=== PATIENT | male | born 1945 | race Caucasian/White ===

== ENCOUNTER 2020-03-21 09:23 | Observation (INO) ==
--- NOTE | 2020-02-18 12:57 | PAT Medication Instructions ---
Medication Instructions Date of Service February 18, 2020 Home Medications acetaminophen [Tylenol Extra Strength] 500 mg PO BID allopurinol 100 mg PO QAM diphenhydramine HCl [Benadryl] 50 mg PO HS docusate sodium [Colace] 100 mg PO PM Centrum Silver Men] 1 tab PO QAM omeprazole magnesium [Prilosec OTC] 20 mg PO Q OTHER DAY oxymetazoline [Afrin Sinus (oxymetazoline)] 2 spray INTRANASAL Q12H PRN sennosides [Senna Lax] 8.6 mg PO HS tadalafil [Cialis] 5 mg PO DAILY PRN vit C,W-Wf-mrjwe-lutein-zeaxan [PreserVision AREDS-2] 1 tab PO QAM vitamin E 400 unit PO 3XWK Continue as directed omeprazole magnesium [Prilosec OTC] 20 mg PO Q OTHER DAY STOP taking 2 weeks before surgery (or as soon as possible if surgery is within 2 weeks) vit C,A-Rl-kqtdk-lutein-zeaxan [PreserVision AREDS-2] 1 tab PO QAM vitamin E 400 unit PO 3XWK DO NOT take the morning of surgery Centrum Silver Men] 1 tab PO QAM tadalafil [Cialis] 5 mg PO DAILY PRN Take morning of surgery With a small sip of water, OTHERWISE NOTHING TO EAT OR DRINK AFTER MIDNIGHT: acetaminophen [Tylenol Extra Strength] 500 mg PO BID (okay to take up to 4 hours prior to surgery if needed) allopurinol 100 mg PO QAM oxymetazoline [Afrin Sinus (oxymetazoline)] 2 spray INTRANASAL Q12H PRN (if needed) Take evening before surgery acetaminophen [Tylenol Extra Strength] 500 mg PO BID diphenhydramine HCl [Benadryl] 50 mg PO HS docusate sodium [Colace] 100 mg PO PM oxymetazoline [Afrin Sinus (oxymetazoline)] 2 spray INTRANASAL Q12H PRN (if needed) sennosides [Senna Lax] 8.6 mg PO HS tadalafil [Cialis] 5 mg PO DAILY PRN (if needed) Other Notes If you have any questions please call us at [phone] or [phone] or [phone] or [phone]
--- NOTE | 2020-02-18 13:18 | PAT Medication Instructions ---
Medication Instructions Date of Service February 18, 2020 Home Medications acetaminophen [Tylenol Extra Strength] 500 mg PO BID allopurinol 100 mg PO QAM diphenhydramine HCl [Benadryl] 50 mg PO HS docusate sodium [Colace] 100 mg PO PM bqfmurfe-uvg-VN-lycopen-lutein [Centrum Silver Men] 1 tab PO QAM omeprazole magnesium [Prilosec OTC] 20 mg PO Q OTHER DAY oxymetazoline [Afrin Sinus (oxymetazoline)] 2 spray INTRANASAL Q12H PRN sennosides [Senna Lax] 8.6 mg PO HS tadalafil [Cialis] 5 mg PO DAILY PRN vit C,E-Ax-zjejw-lutein-zeaxan [PreserVision AREDS-2] 1 tab PO QAM vitamin E 400 unit PO 3XWK STOP taking 2 weeks before surgery vit C,F-Pa-emwop-lutein-zeaxan [PreserVision AREDS-2] 1 tab PO QAM vitamin E 400 unit PO 3XWK STOP taking 24 hours before surgery tadalafil [Cialis] 5 mg PO DAILY PRN DO NOT take the morning of surgery vsdonbuh-kuw-CF-lycopen-lutein [Centrum Silver Men] 1 tab PO QAM Take morning of surgery With a small sip of water, OTHERWISE NOTHING TO EAT OR DRINK AFTER MIDNIGHT: acetaminophen [Tylenol Extra Strength] 500 mg PO BID (okay to take up to 4 hours prior to surgery if needed) allopurinol 100 mg PO QAM omeprazole magnesium [Prilosec OTC] 20 mg PO Q OTHER DAY oxymetazoline [Afrin Sinus (oxymetazoline)] 2 spray INTRANASAL Q12H PRN (if needed) Take evening before surgery acetaminophen [Tylenol Extra Strength] 500 mg PO BID (if needed) diphenhydramine HCl [Benadryl] 50 mg PO HS docusate sodium [Colace] 100 mg PO PM oxymetazoline [Afrin Sinus (oxymetazoline)] 2 spray INTRANASAL Q12H PRN (if needed) sennosides [Senna Lax] 8.6 mg PO HS Other Notes If you have any questions please call us at [phone] or [phone] or [phone] or [phone]
--- NOTE | 2020-02-21 12:21 | Anesthesiology Consultation ---
Date of Service February 21, 2020 Assessment & Plan (1) Encounter for pre-operative examination: COVID Status: As of 02/20 assessment, patient denies travel to endemic area, known exposure/sick contacts, or symptoms of COVID19. Patient instructed that they and their household members must follow strict social distancing guidelines, wear a mask in public and avoid travel for 14 days prior to surgery. Preoperative COVID19 testing to be completed prior to surgery per surgeon's arra ngements. Patient made aware to self-isolate as much as possible between COVID testing and surgery. Hx of anesthesia reaction -- patient reports in 1998 he had an epidural or spinal for a colon resection. When he woke up in recovery he was "paralyzed and couldn't breathe and ," and was possibly intubated, patient's report and memory is vague, but he states when he woke up again later the paralysis had resolved. ?high spinal, details are unclear. Chart Review Chart Review: Acceptable Risk for Surgery (pending response from PCP re: creatinine) and Patient seen in Pre Admission Testing Teaching & Discussion Instructed NPO after midnight before surgery, except medications with 15 cc of water. Medication instructions provided according to the PAT guidelines. History Surgery Operation Date: 03/22/20 07:00 Proposed Procedures p Left Total Knee Arthroplasty - Carlos Bell DO Height/Weight Height: 5 ft 11 in Weight: 92.533 kg Allergies Allergy/AdvReac Type Severity Reaction Status Date / Time Sulfa (Sulfonamide Allergy Redness of Verified 02/14/20 13:19 Antibiotics) Skin Medications Home Medications Medication Instructions Recorded Confirmed Last Taken acetaminophen [Tylenol Extra 500 mg PO BID 02/14/20 02/14/20 Unknown Strength] allopurinol 100 mg PO QAM 02/14/20 02/14/20 Unknown diphenhydramine HCl [Benadryl] 50 mg PO HS 02/14/20 02/14/20 Unknown docusate sodium [Colace] 100 mg PO PM 02/14/20 02/14/20 Unknown ceokzlvt-kzk-ID-lycopen-lutein 1 tab PO QAM 02/14/20 02/14/20 Unknown [Centrum Silver Men] omeprazole magnesium [Prilosec OTC] 20 mg PO Q OTHER DAY 02/14/20 02/14/20 Unknown oxymetazoline [Afrin Sinus 2 spray INTRANASAL Q12H PRN 02/14/20 02/14/20 Unknown (oxymetazoline)] sennosides [Senna Lax] 8.6 mg PO HS 02/14/20 02/14/20 Unknown tadalafil [Cialis] 5 mg PO DAILY PRN 02/14/20 02/14/20 Unknown vit C,Z-Fl-vjsqf-lutein-zeaxan 1 tab PO QAM 02/14/20 02/14/20 Unknown [PreserVision AREDS-2] vitamin E 400 unit PO 3XWK 02/14/20 02/14/20 Unknown Past Medical History Medical History (Updated 02/22/20 @ 08:41 by Jf Suh) Anemia Chronic obstructive pulmonary disease ? POSSIBLE> BEGINNING STAGES PER PTS , PT DOES NOT USE ANY INHALERS Degenerative disc disease Double vision HAS HAD SURGERY IN PAST FOR THIS AT [facility] > DID NOT WORK GERD (gastroesophageal reflux disease) Gout Hearing deficit Hiatal hernia History of chemotherapy LAST EPISODE IN 1999 History of GI bleed RESOLVED AFTER SMALL BOWEL RESECTION Hx of colon cancer, stage IV 1998 Irregular heart beats PT REPORTS IRREGULAR RHYTHM, WAS CLEARED BY CARDIO IN THE PAST, NO FURTHER DETAILS KNOWN, NSR AT [facility]. Kidney stones HX Ocular migraine Osteoarthritis Prostate cancer 43 RADIATION TREATMENTS> 4 YS AGO Exercise / Class Metabolic Activity II 4-5 Yardwork/Stairs/Walk up hill (DENIES CP OR SOB WITH 1 FOS, SOME BARNEY WITH WALKING UP A HILL) Past Family History Family History Father Prostate cancer Mother Pre-diabetes Past Surgical History Surgical History (Updated 02/22/20 @ 08:42 by Jf Suh) H/O prostate biopsy H/O right hemicolectomy History of anesthesia reaction AT [facility] IN SEPTEMBER 1998 PT HAD TO BE BAGGED BC QUIT BREATHING DURING PROCEDURE. PT UNSURE OF DETAILS. SUBSEQUENT SURGERIES WITHOUT ISSUES. History of bowel resection SMALL BOWEL> 2016 History of colonoscopy History of esophagogastroduodenoscopy (EGD) Kidney carcinoma REMOVED LEFT KIDNEY > 1996 Nausea and vomiting after administration of anesthetic agent Slow to wake up after anesthesia Past Anesthesia History No Family Hx of Anesthesia Complications (NOT KNOWN) and Other Pt provided vague history of possible anesthesia reaction, possible high spinal for 1998 colon resection. Reports he "" and was brought back, recalls feeling paralyzed but it eventually resolved. History of PONV History of PONV and Hx of Motion Sickness Social History Smoking Status: Former smoker Do You Dip or Chew Tobacco: No Smoking End Date: 1992 Hx Alcohol Use: No Hx Substance Use: No substance use type: does not use Review of Systems Pt denies any recent chest pain, shortness of breath, palpitations, cough, fever, URI, or uncontrolled acid reflux. Physical Exam Vital Signs BP: 130/74 P: 73bpm SPO2: 97% RA T: 98.4 F R: 16 ENMT Mouth: + dental restorations (few posts); no chipped teeth and no loose teeth Thyromental Distance: < 3.5 Finger Breadths (3) Mallampati Class: I Neck normal visual inspection and + limited neck extension Respiratory normal respiratory effort Auscultation: lungs clear to auscultation bilaterally and + diminished lung sounds (B/L) Cardiovascular Rate/Rhythm: regular rate and regular rhythm Heart Sounds: no murmur Testing Laboratory Results 02/21/20 12:36 02/21/20 12:36 PT 10.3 Seconds (9.0-12.0) 02/21/20 12:36 INR 1.0 (0.9-1.1) 02/21/20 12:36 APTT 28.2 Seconds (21.0-31.0) 02/21/20 12:36 Hemoglobin A1c 5.8 % (4.5-5.6) H 02/21/20 12:36 Urine Color Yellow 02/21/20 12:36 Urine Appearance Clear (Clear) 02/21/20 12:36 Urine pH 5.5 (4.5-7.5) 02/21/20 12:36 Ur Specific [place] 1.018 (1.000-1.030) 02/21/20 12:36 Urine Protein Negative (Negative) 02/21/20 12:36 Urine Glucose (UA) Negative (Negative) 02/21/20 12:36 Urine Ketones Negative (Negative) 02/21/20 12:36 Urine Nitrite Negative (Negative) 02/21/20 12:36 Ur Leukocyte Esterase Negative (Negative) 02/21/20 12:36 Blood Type A Positive 02/21/20 12:36 Antibody Screen NEGATIVE 02/21/20 12:36 Electrocardiogram Date: 02/21/20 Findings: + NSR @ (67bpm) Left axis deviation. Low voltage QRS. RBBB. Chest X-Ray Date: 02/21/20 Findings: + NAD
--- NOTE | 2020-02-21 13:01 | Electrocardiogram Report ---
Test Reason : Blood Pressure : / mmHG Vent. Rate : 067 BPM Atrial Rate : 067 BPM P-R Int : 162 ms QRS Dur : 114 ms QT Int : 408 ms P-R-T Axes : 058 -82 049 degrees QTc Int : 431 ms Normal sinus rhythm Left axis deviation Low voltage QRS Right bundle branch block Abnormal ECG No previous ECGs available Confirmed by Eduardo Harrison ([id number]) on 02/21/2020 1:00:33 PM Referred By: Carlos Bell Confirmed By:Eduardo Harrison
--- NOTE | 2020-02-21 13:21 | XRay Report ---
TWO VIEW CHEST CLINICAL HISTORY: Preoperative examination. FINDINGS: PA and lateral chest radiographs are obtained. No prior studies are available for compariso n at the time of dictation. The cardiomediastinal silhouette is unremarkable noting atherosclerotic calcification of the thoracic aorta. There is mild bibasilar atelectasis. No airspace consolidation o r pleural effusion is identified. There is no pneumothorax. The skeletal structures are osteopenic. T he bony thorax appears intact. Degenerative change is seen in the thoracic spine. IMPRESSION: No active disease in the chest. ACT 112: Negative or not required by law. Electronically signed by: Cain Sheppard M.D. 02/21/2020 1:20 PM
[2020-02-21 13:39] LABS: Appearance Urine Clear (Clear); Bilirubin Urine Negative (Negative); Blood Urine Negative (Negative); Color Urine Yellow; Glucose Urine UA Negative (Negative); Ketones Urine Negative (Negative); Leukocyte Esterase Urine Negative (Negative); Nitrite Urine Negative (Negative); Protein Urine Negative (Negative); Specific Gravity Urine 1.018 (1.000-1.030); Urobilinogen Urine Negative (Negative); pH Urine 5.5 (4.5-7.5)
[2020-02-21 13:43] LABS: Basophils # (auto) 0.01 K/uL (0-0.2); Basophils % (auto) 0.2 %; Eosinophils # (auto) 0.14 K/uL (0-0.5); Hematocrit (blood only) 37.7 % (42-52); Hemoglobin 12.6 g/dL (14.0-18.0); Immature Granulocytes # (auto) 0.01 K/uL (0.00-0.02); Immature Granulocytes % (auto) 0.2 %; Lymphocytes # (auto) 1.16 K/uL (1.2-3.4); Lymphocytes % (auto) 25.1 %; Mean Corpuscular Hemoglobin 30.6 pg (25-34); Mean Corpuscular Hgb Conc 33.4 g/dL (32-36); Mean Corpuscular Volume 91.5 fL (80-100); Mean Platelet Volume 10.5 fL (7.4-10.4); Monocytes # (auto) 0.38 K/uL (0.11-0.59); Monocytes % (auto) 8.2 %; Neutrophils # (auto) 2.93 K/uL (1.4-6.5); Neutrophils % (auto) 63.3 %; Platelet Count 179 K/uL (130-400); RDW Coefficient of Variation 14.6 % (11.5-14.5); RDW Standard Deviation 49.2 fL (36.4-46.3); Red Blood Count 4.12 M/uL (4.7-6.1); White Blood Count 4.63 K/uL (4.8-10.8)
[2020-02-21 13:50] LABS: Partial Thromboplastin Time 28.2 Seconds (21.0-31.0); Prothrombin Time 10.3 Seconds (9.0-12.0)
[2020-02-21 15:00] LABS: Albumin Level 3.4 gm/dl (3.4-5.0); BUN Creatinine Ratio 11.4 (10-20); Calcium 8.6 mg/dl (8.5-10.1); Est GFR (Non-African American) 36.2; Potassium 4.6 mmol/L (3.5-5.1)
[2020-02-22 05:29] LABS: Estimated Average Glucose 120 mg/dl; Hemoglobin A1C 5.8 % (4.5-5.6)
--- NOTE | 2020-02-25 08:34 | History & Physical Report ---
Date of Service February 25, 2020 date of surgery: 03-22-20 Procedure: left total knee replacement Assessment & Plan (1) Arthritis of knee, left: Risks and benefits of procedure discussed in detail today, patient would like to proceed with a Left total knee replacement at [facility] as scheduled. will obtain medical clearance from Dr Moulton prior to surgery as well as obtain PATs at [facility]. Will place on ASA 81mg po bid x 1 month post op, f/u 2 weeks post op for routine post-operative care and x-ray, sooner if having any problems. will make arrangements for HHPT at the time of discharge. At this point in time, has failed conservative measures and would like to proceed with surgical intervention. The risks and benefits have been discussed including, but not limited to, risk of infection, nerve injury, stiffness, loss of motion, failure to improve, etc. Reasonable outcomes and options of treatment were discussed. An explanation of appropriate alternatives to the procedure that may be advantageous were discussed and their risks and benefits, as well as the risks and benefits of not proceeding with treatment. I offered to answer any additional inquiries concerning the treatment involved. All the patient's questions were answered. The patient is agreeable, understanding of the treatment plan and alternatives, and wishes to proceed with the treatment plan. History of Present Illness Chief Complaint: left knee pain Primary Care Provider: MARGRET MOULTON Mr Meneses is a 74 year old male who complains of left knee pain, presents for pre op eval prior to a left total knee replacement. He presents with pain and stiffness on the left side. He states that the symptoms have been chronic non- traumatic for at least 15 years. Currently the patient states that the symptoms are moderate-severe and is described as aching, sharp, shooting and throbbing. The symptoms are aggravated by ascending stairs, descending stairs, daily activities, exercise, first steps while awake, jumping, kneeling, movement, physical therapy, repetitive activities, sleeping on the affected side, squatting, standing, walking and weight bearing. In addition to left knee pain the patient is also experiencing decreased mobility, crepitus, difficulty bending, difficulty going to sleep, instability, joint pain, limping, nighttime awakening, pain, stiffness, tenderness and weakness. Prior pain medications include Tylenol. He has been treated with a corticosteroid injection, previous visco supplementation, Hyalgan, as well as previous PRP injections x2 to his left knee. Patient has had previous therapy. Allergies Allergy/AdvReac Type Severity Reaction Status Date / Time Sulfa (Sulfonamide Allergy Redness of Verified 02/14/20 13:19 Antibiotics) Skin Home Medications Home Medications Medication Instructions Recorded Confirmed Type acetaminophen [Tylenol Extra 500 mg PO BID 02/14/20 02/14/20 History Strength] allopurinol 100 mg PO QAM 02/14/20 02/14/20 History diphenhydramine HCl [Benadryl] 50 mg PO HS 02/14/20 02/14/20 History docusate sodium [Colace] 100 mg PO PM 02/14/20 02/14/20 History qkffjlpc-gdv-BS-lycopen-lutein 1 tab PO QAM 02/14/20 02/14/20 History [Centrum Silver Men] omeprazole magnesium [Prilosec OTC] 20 mg PO Q OTHER DAY 02/14/20 02/14/20 History oxymetazoline [Afrin Sinus 2 spray INTRANASAL Q12H PRN 02/14/20 02/14/20 History (oxymetazoline)] sennosides [Senna Lax] 8.6 mg PO HS 02/14/20 02/14/20 History tadalafil [Cialis] 5 mg PO DAILY PRN 02/14/20 02/14/20 History vit C,A-Cx-fbjed-lutein-zeaxan 1 tab PO QAM 02/14/20 02/14/20 History [PreserVision AREDS-2] vitamin E 400 unit PO 3XWK 02/14/20 02/14/20 History Past Med/Surg History Medical History Anemia Chronic obstructive pulmonary disease ? POSSIBLE> BEGINNING STAGES PER PTS , PT DOES NOT USE ANY INHALERS Degenerative disc disease Double vision HAS HAD SURGERY IN PAST FOR THIS AT [facility] > DID NOT WORK GERD (gastroesophageal reflux disease) Gout Hearing deficit Hiatal hernia History of chemotherapy LAST EPISODE IN 1999 History of GI bleed RESOLVED AFTER SMALL BOWEL RESECTION Hx of colon cancer, stage IV 1998 Irregular heart beats PT REPORTS IRREGULAR RHYTHM, WAS CLEARED BY CARDIO IN THE PAST, NO FURTHER DETAILS KNOWN, NSR AT PAT. Kidney stones HX Ocular migraine Osteoarthritis Prostate cancer 43 RADIATION TREATMENTS> 4 YS AGO Surgical History H/O prostate biopsy H/O right hemicolectomy History of anesthesia reaction AT [facility] IN SEPTEMBER 1998 PT HAD TO BE BAGGED BC QUIT BREATHING DURING PROCEDURE. PT UNSURE OF DETAILS. SUBSEQUENT SURGERIES WITHOUT ISSUES. History of bowel resection SMALL BOWEL> 2016 History of colonoscopy History of esophagogastroduodenoscopy (EGD) Kidney carcinoma REMOVED LEFT KIDNEY > 1996 Nausea and vomiting after administration of anesthetic agent Slow to wake up after anesthesia Family History Father Prostate cancer Mother Pre-diabetes Social History Smoking Status: Former smoker Smoking End Date: 1992; Second Hand Exposure: Yes; Do You Dip or Chew Tobacco: No; Tobacco Cessation Education Requested by Patient: No Hx Alcohol Use: No Hx Substance Use: No Preferred Language: Azeri Communication Ability: Effective Kitchen Aide Required: No Beliefs That Will Affect Care: None Current Living Situation: Spouse Other Information That Helps Us Care for You: No Feels Safe at Home: Yes Safety Concerns: Feels Safe At This Time Review of Systems Review of Systems: All systems reviewed & are unremarkable except as noted in HPI & below Constitutional: no fever, no chills and no sweats Respiratory: no cough and no dyspnea Cardiovascular: no chest pain, no dyspnea and no orthopnea Gastrointestinal: no abdominal pain, no nausea and no vomiting Musculoskeletal: as per Subjective / HPI Physical Exam Physical Exam: Ht: 5ft 11in Wt: 92.4kb BP: 134/72 Constitutional: WD/WN, vitals as above no acute distress Respiratory: normal respiratory effort, lungs clear to auscultation no respiratory distress, no labored breathing and does not use accessory muscles Cardiovascular: RRR, no murmur, no edema Gastrointestinal (Abdomen): normal bowel sounds, soft, nontender, no hepatosplenomegaly Musculoskeletal: Knee: + knee abnormal to inspection (Left knee- ), + effusion (+1 effusion), + limited ROM of knee (ROM 0/3/110), + knee ROM with crepitation, + joint line tenderness (medial joint line) and + Mayte's sign positive; no deformity, no skin erythema, no ecchymosis, no valgus laxity, no varus laxity, anterior drawer test negative, Yamilex's sign negative and pivot shift test negative Results & Data Results & Data ([facility]) Laboratory Results Laboratory Results WBC 4.63 K/uL (4.8-10.8) L 02/21/20 12:36 RBC 4.12 M/uL (4.7-6.1) L 02/21/20 12:36 Hgb 12.6 g/dL (14.0-18.0) L 02/21/20 12:36 Hct 37.7 % (42-52) L 02/21/20 12:36 MCV 91.5 fL (80-100) 02/21/20 12:36 MCH 30.6 pg (25-34) 02/21/20 12:36 MCHC 33.4 g/dL (32-36) 02/21/20 12:36 RDW Std Deviation 49.2 fL (36.4-46.3) H 02/21/20 12:36 RDW Coeff of Zeina 14.6 % (11.5-14.5) H 02/21/20 12:36 Plt Count 179 K/uL (130-400) 02/21/20 12:36 MPV 10.5 fL (7.4-10.4) H 02/21/20 12:36 Immature Gran % (Auto) 0.2 % 02/21/20 12:36 Neut % (Auto) 63.3 % 02/21/20 12:36 Lymph % (Auto) 25.1 % 02/21/20 12:36 [place] % (Auto) 8.2 % 02/21/20 12:36 Eos % (Auto) 3.0 % 02/21/20 12:36 Baso % (Auto) 0.2 % 02/21/20 12:36 Neut # (Auto) 2.93 K/uL (1.4-6.5) 02/21/20 12:36 Lymph # (Auto) 1.16 K/uL (1.2-3.4) L 02/21/20 12:36 [place] # (Auto) 0.38 K/uL (0.11-0.59) 02/21/20 12:36 Eos # (Auto) 0.14 K/uL (0-0.5) 02/21/20 12:36 Baso # (Auto) 0.01 K/uL (0-0.2) 02/21/20 12:36 Immature Gran # (Auto) 0.01 K/uL (0.00-0.02) 02/21/20 12:36 PT 10.3 Seconds (9.0-12.0) 02/21/20 12:36 INR 1.0 (0.9-1.1) 02/21/20 12:36 APTT 28.2 Seconds (21.0-31.0) 02/21/20 12:36 PTT Ratio 1.0 02/21/20 12:36 Sodium 142 mmol/L (136-145) 02/21/20 12:36 Potassium 4.6 mmol/L (3.5-5.1) 02/21/20 12:36 Chloride 111 mmol/L (98-107) H 02/21/20 12:36 Carbon Dioxide 22 mmol/L (21-32) 02/21/20 12:36 Anion Gap 9.0 (3-11) 02/21/20 12:36 BUN 20 mg/dl (7-18) H 02/21/20 12:36 Creatinine 1.78 mg/dl (0.6-1.4) H 02/21/20 12:36 Est Cr Clr Drug Dosing 41.0 ml/min 02/21/20 12:36 Est GFR ( Amer) 42.0 02/21/20 12:36 Est GFR (Non-Af Amer) 36.2 02/21/20 12:36 BUN/Creatinine Ratio 11.4 (10-20) 02/21/20 12:36 Glucose 90 mg/dl (70-99) 02/21/20 12:36 Estimat Average Glucose 120 mg/dl 02/21/20 12:36 Hemoglobin A1c 5.8 % (4.5-5.6) H 02/21/20 12:36 Calcium 8.6 mg/dl (8.5-10.1) 02/21/20 12:36 Albumin 3.4 gm/dl (3.4-5.0) 02/21/20 12:36 Urine Color Yellow 02/21/20 12:36 Urine Appearance Clear (Clear) 02/21/20 12:36 Urine pH 5.5 (4.5-7.5) 02/21/20 12:36 Ur Specific [place] 1.018 (1.000-1.030) 02/21/20 12:36 Urine Protein Negative (Negative) 02/21/20 12:36 Urine Glucose (UA) Negative (Negative) 02/21/20 12:36 Urine Ketones Negative (Negative) 02/21/20 12:36 Urine Blood Negative (Negative) 02/21/20 12:36 Urine Nitrite Negative (Negative) 02/21/20 12:36 Urine Bilirubin Negative (Negative) 02/21/20 12:36 Urine Urobilinogen Negative (Negative) 02/21/20 12:36 Ur Leukocyte Esterase Negative (Negative) 02/21/20 12:36 Blood Type A Positive 02/21/20 12:36 Antibody Screen NEGATIVE 02/21/20 12:36 Diagnostic Findings Left Knee X-ray: left knee series confirm advanced degenerative changes to the left knee, greatest medial compartments and patellofemoral joint, showing joint space narrowing, osteophyte formation and subchondral sclerosis. no acute bony pathology noted.
[~2020-03-21 09:23] MED LIST: ACETAMINOPHEN 500 MG TAB PO SCH; BUPIVACAINE 0.5 % 5 MG/1 ML PF 10ML VIAL ONE; CEFAZOLIN 2000MG 2,000 MG/15 ML SYR IV SCH; FAMOTIDINE 20 MG TAB PO SCH; GABAPENTIN 300 MG CAP PO SCH; LR 500ML BOLUS, THEN 15ML/HR IV SCH; METOCLOPRAMIDE HCL 10 MG TABLET PO SCH; ROPIVACAINE 0.5% HCL/PF 150 MG, BUPIVACAINE 0.5% MPF 30 ML, EPINEPHrine 30MG/30ML (OR U... INFIL SCH; TRANEXAMIC ACID 1,000 MG **IV Intra-op IV SCH; TRANEXAMIC ACID 1,000 MG **IV Pre-op IV SCH; dexAMETHasone 4 MG TAB PO SCH
[2020-03-21] MEDS ORDERED: MIDAZOLAM HCL 1 MG/ML 2ML VIAL ONE (09:44)
[2020-03-21] MEDS ORDERED: fentaNYL citrate 100 MCG/2 ML VIAL ONE (09:44)
--- NOTE | 2020-03-21 10:35 | History & Physical Bridge Note ---
Date of Service March 21, 2020 History & Physical Bridge Note I have examined the patient, reviewed the History & Physical and in the interval since the performance of the History & Physical I have noted the following changes of clinical significance: no changes noted
[2020-03-21] MEDS ORDERED: BACITRACIN INJ 50,000 UNIT VIAL ONE (11:03)
[2020-03-21] MEDS ORDERED: ORTHO JOINT ANESTHETIC ONE (11:03)
[2020-03-21] MEDS ORDERED: fentaNYL citrate 100 MCG/2 ML VIAL IV PRN (11:51)
[2020-03-21] MEDS ORDERED: ATROPINE SULFATE 0.1 MG/ML 10ML SYR IV PRN (11:51)
[2020-03-21] MEDS ORDERED: ePHEDrine sulfate 50 MG/ML AMP IV PRN (11:51)
[2020-03-21] MEDS ORDERED: ONDANSETRON INJ 2 MG/ML 2 ML VIAL IV PRN ×2 (11:51→14:33)
[2020-03-21] MEDS ORDERED: PROPOFOL IV EMULSION 10 MG/ML 20 ML VIAL IV ONE (11:57)
--- NOTE | 2020-03-21 12:54 | Operative Report ---
Post Operative Report Pre & Post Diagnosis Operation Date: 03/21/20 13:40 Pre-Op Diagnosis: Unilateral Primary Osteoarthritis, Left Knee Post-Op Diagnosis: Unilateral Primary Osteoarthritis, Left Knee I identified the patient and participated in the time-out.: Yes Procedure Operation Date: 03/21/20 13:40 Actual Procedures p Left Total Knee Arthroplasty(Left) utilizing [employer] journey 2 patient matched total knee arthroplasty size 6 femur 6 tibia 9 poly-32 oval patella- Carlos Bell DO Surgeon Carlos Bell DO Nutrition Program Instructor Rubén MCCARTHY Estimated Blood Loss 5 Findings Consistent with Post-Op Diagnosis Patient with severe end-stage DJD left knee with varus alignment subchondral sclerosis marginal osteophytes moderate to large effusion eburnated [id number] Specimens Bone and cartilage Drains Medium bore Hemovac Anesthesia Type MAC Spinal Regional Complications none Disposition Accompanied Patient To Recovery: No Disposition: Recovery Room Indications Patient has severe end-stage tricompartmental degenerative joint disease left knee no response to conservative management patient presents for total knee a rthroplasty the above intraoperative findings were noted patient fell attempted conservative management including corticosteroid injections Visco supplementation relative rest activity modification Description of Procedure After proper prepping and draping of the left lower extremity anterior midline incision was made over the region of the extensor extensor mechanism after meticulous hemostasis was obtained and maintained in subcutaneous tissues a medial parapatellar incision was made The patella was subluxed lateralward the medial lateral gutter were cleaned from any hypertrophic synovitis and scar tissue of the distal femoral block was placed and the distal femoral osteotomy cut was made subsequently the chamfers anterior and posterior osteotomy cuts were made utilizing the 4-in-1 block the tibia was subsequently subluxed anteriorward medial and ateral meniscal remnants were excised in their entirety remnants of the anterior and posterior cruciate ligaments were excised in their entirety excellent exposure of the proximal tibia was obtained the tibial osteotomy guide was placed on the proximal tibial osteotomy cut was made once a gain the knee was irrigated with copious amounts of sterile saline solution the patella was subsequently everted lateralward thickened scar tissue around the patella was removed the patella was subsequently cut utilizing a freehand technique and was drilled prepared for final preparation and placement of patella socially flexion-extension gaps were checked and the equal and symmetric trials were placed to the appropriate femoral and tibial trials with poly-spacer being placed for equal flexion and extension gaps and full range of motion including extension to 0 and flexion to 140 the trial components after having been taken to recovery range of motion was subsequently removed meticulous hemostasis was obtained and maintained subsequently a knee block injection of joint cocktail including ropivacaine 0.5% 150 mg. Bupivacaine 0.5% epinephrine 1-200,030 mL's toradol 30 mg dexamethasone 4 mg ketamine 10 mg clonidine 100 micrograms normal saline solution 30 mg was infiltrated into the soft tissues of the posterior knee medial lateral gutters and periosteal synovium special attention was paid to protect neurovascular structures at all times subsequently trial components having been removed the knee was irrigated with sterile saline solution. debris was removed the proximal tibia was subsequently prepared and was made ready for the placement of the tibial component tibial component was also cemented and tamped into position the femoral component was subsequently placed and cemented in the position the patellar component was subsequently cemented in position because hemostasis once again obtained and maintained wound having been thoroughly irrigated with debridement and debridement lavage was performed as well as a medial parapatellar incision closed with #1 Vicryl in interrupted fashion subcutaneous was closed with #2 Vicryl skin was closed with skin clips. PA-C was necessary for prepping and drapping as well as wound closure of deep fascia Sub cutaneous tissue and skin and was necessary for the case. A sterile compressive dressing was placed patient was taken to recovery in stable condition of report dictated by Ray I attest to the content of the Intraoperative Record and any orders documented therein. Any exceptions are noted below. I attest to the content of the Intraoperative Record and any orders documented therein. Any exceptions are noted below.
--- NOTE | 2020-03-21 14:05 | XRay Report ---
TWO VIEWS LEFT KNEE CLINICAL HISTORY: Postoperative examination. FINDINGS: AP and crosstable lateral portable views of the left knee are obtained. A left knee arthrop lasty is in near anatomic alignment. There has been undersurface remodeling of the patella. No acute fracture is seen. There are expected postoperative changes around the knee including skin clips, a valenzuela rgical drain, soft tissue edema, and subcutaneous gas. IMPRESSION: Expected postoperative changes status post left knee arthroplasty. No acute fracture is s een. ACT 112: Negative or not required by law. Electronically signed by: Cain Sheppard M.D. 03/21/2020 2:03 PM
--- NOTE | 2020-03-21 14:07 | Anesthesiology Progress Note ---
Date of Service March 21, 2020 Anesthesia Post Procedure Vital Signs Vital Signs: Temp Pulse Pulse Resp BP BP Pulse Ox 03/21/20 14:00 97.5 F L 60 21 117/67 96 03/21/20 13:50 60 21 121/71 96 03/21/20 13:40 46 L 21 127/76 96 03/21/20 13:33 97.7 F 59 L 21 108/72 97 03/21/20 11:05 75 18 146/90 H 98 03/21/20 09:49 98.1 F 86 18 155/95 H 96 Transfer of Care Handoff Completed per policy Notes Mental Status: alert / awake / arousable and participated in evaluation Patient Amnestic to Procedure: Yes Nausea / Vomiting: adequately controlled Pain: adequately controlled Airway Patency, RR, SpO2: stable & adequate BP & HR: stable & adequate Hydration State: stable & adequate Neuraxial Anesthesia: was administered and sensory block is resolving Anesthetic Complications: no major complications apparent and Pt Satisfied with anesthetic care
[2020-03-21] MEDS ORDERED: OXYCODONE HCL IR 5 MG TAB (IMMEDIATE RELEASE) PO PRN (14:33)
[2020-03-21] MEDS ORDERED: NALOXONE HCL 0.4 MG/1 ML VIAL/CARP IV PRN (14:33)
[2020-03-21] MEDS ORDERED: MAGNESIUM HYDROXIDE SUSP 30 ML UDC PO PRN (14:33)
[2020-03-21] MEDS ORDERED: bisacodyL 10 MG SUPP PR PRN (14:33)
[2020-03-21] MEDS ORDERED: HYDROmorphone INJ 0.5 MG/0.5 ML SYR IV PRN (14:33)
[2020-03-21] MEDS: ACETAMINOPHEN 500 MG TAB PO SCH ×2 (16:36→21:16)
[2020-03-21] MEDS: FERROUS GLUCONATE 324 MG TAB PO SCH (17:44)
[2020-03-21] MEDS: SODIUM CHLORIDE 0.9% 1000ML 1,000 ML IV SCH (18:43)
[2020-03-21] MEDS: DOCUSATE SODIUM 100 MG CAP PO SCH (20:41)
[2020-03-21] MEDS: ASPIRIN 81 MG ECTAB PO SCH (20:41)
[2020-03-21] MEDS ORDERED: SENNA 8.6 MG TAB PO SCH (21:00)
[2020-03-21] MEDS: CEFAZOLIN 2000MG 2,000 MG/15 ML SYR IV SCH (21:16)
[2020-03-22] MEDS: SODIUM CHLORIDE 0.9% 1000ML 1,000 ML IV SCH (02:47)
[2020-03-22] MEDS: ACETAMINOPHEN 500 MG TAB PO SCH ×2 (05:46→13:56)
[2020-03-22] MEDS: CEFAZOLIN 2000MG 2,000 MG/15 ML SYR IV SCH (05:46)
[2020-03-22] MEDS ORDERED: CEFAZOLIN 2000MG 2,000 MG/15 ML SYR IV SCH (06:00)
[2020-03-22] MEDS ORDERED: TRANEXAMIC ACID 1,000 MG **IV Intra-op IV SCH (06:00)
[2020-03-22] MEDS ORDERED: FAMOTIDINE 20 MG TAB PO SCH (06:00)
[2020-03-22] MEDS ORDERED: ACETAMINOPHEN 500 MG TAB PO SCH (06:00)
[2020-03-22] MEDS ORDERED: ROPIVACAINE 0.5% HCL/PF 150 MG, BUPIVACAINE 0.5% MPF 30 ML, EPINEPHrine 30MG/30ML (OR U... INSTIL SCH (06:00)
[2020-03-22] MEDS ORDERED: METOCLOPRAMIDE HCL 10 MG TABLET PO SCH (06:00)
[2020-03-22] MEDS ORDERED: GABAPENTIN 300 MG CAP PO SCH (06:00)
[2020-03-22] MEDS ORDERED: TRANEXAMIC ACID 1,000 MG **IV Pre-op IV SCH (06:00)
[2020-03-22] MEDS ORDERED: dexAMETHasone 4 MG TAB PO SCH (06:00)
[2020-03-22] MEDS ORDERED: LR 500ML BOLUS, THEN 15ML/HR IV SCH (06:00)
[2020-03-22 06:11] LABS: Hematocrit (blood only) 34.6 % (42-52); Hemoglobin 11.6 g/dL (14.0-18.0); Mean Corpuscular Hemoglobin 30.1 pg (25-34); Mean Corpuscular Hgb Conc 33.5 g/dL (32-36); Mean Corpuscular Volume 89.9 fL (80-100); Mean Platelet Volume 10.8 fL (7.4-10.4); Platelet Count 175 K/uL (130-400); RDW Coefficient of Variation 14.5 % (11.5-14.5); RDW Standard Deviation 47.6 fL (36.4-46.3); Red Blood Count 3.85 M/uL (4.7-6.1); White Blood Count 12.35 K/uL (4.8-10.8)
[2020-03-22 06:43] LABS: BUN Creatinine Ratio 16.2 (10-20); Calcium 8.4 mg/dl (8.5-10.1); Creatinine Clr Calc Pharmacy 41.8 ml/min; Est GFR (African American) 43.2; Est GFR (Non-African American) 37.3
--- NOTE | 2020-03-22 07:13 | Orthopedic Progress Note ---
Date of Service March 22, 2020 Assessment & Plan (1) History of total left knee replacement: POD #1 s/p Left TKA pt/ot dvt proph with ACE/SCD/ASA recheck after PT today for poss discharge Admission and Anticipated Discharge Date Admission Date: March 21, 2020 Subjective POD #1 s/p Left TKA Review of Systems Constitutional: no fever, no chills and no sweats Respiratory: no cough and no dyspnea Cardiovascular: no chest pain and no dyspnea Gastrointestinal: no abdominal pain, no nausea and no vomiting Physical Exam Physical Exam: Vital Signs Temp 36.8 C 03/22/20 03:53 Pulse 98 H 03/22/20 03:53 Resp 16 03/22/20 03:53 BP 139/84 03/22/20 03:53 Pulse Ox 94 03/22/20 03:53 Intake & Output 03/21/20 03/22/20 03/22/20 18:59 06:59 18:59 Intake Total 1800 / 2800 1000 / 2800 Output Total 5 / 1000 995 / 1000 Balance 1795 / 1800 5 / 1800 Weight 91.6 kg Intake: IV 1100 / 2100 1000 / 2100 Lr 1,000 ml @ 15 mls/hr IV . 1000 / 1000 Q24H [facility] Rx#:[id number] Nss 1000ML 1,0 00 ml @ 100 mls/ 1000 / 1000 hr IV .Q10H [facility] Rx#:[id number] TRANEXAMIC ACI D / 0.7% NACL 1, 100 / 100 000 mg In 100 ml @ 600 mls/hr IV TODAY@0600 [facility] Rx#:[id number] IV Perioperative 700 / 700 Output: Urine 650 / 650 Estimated Blood Loss 5 / 5 Drain Output 345 / 345 Left Knee Hemo vac 345 / 345 Constitutional: WD/WN, vitals as above no acute distress Musculoskeletal: Left Leg: NVDI, calf SNT, negative sally sign. DP palpable, able to wiggle toes/ankle movement without difficulty. dressing clean dry and intact. Results & Data ([facility]) Vital Signs (Past 12 Hours) Vital Signs Temp Pulse Resp BP Pulse Ox 03/22/20 03:53 36.8 C 98 H 16 139/84 94 03/21/20 23:48 36.6 C 94 H 18 140/85 95 03/21/20 21:00 82 15 148/87 H 98 Laboratory Results Laboratory Results WBC 12.35 K/uL (4.8-10.8) H 03/22/20 05:28 RBC 3.85 M/uL (4.7-6.1) L 03/22/20 05:28 Hgb 11.6 g/dL (14.0-18.0) L 03/22/20 05:28 Hct 34.6 % (42-52) L 03/22/20 05:28 MCV 89.9 fL (80-100) 03/22/20 05:28 MCH 30.1 pg (25-34) 03/22/20 05:28 MCHC 33.5 g/dL (32-36) 03/22/20 05:28 RDW Std Deviation 47.6 fL (36.4-46.3) H 03/22/20 05:28 RDW Coeff of Zeina 14.5 % (11.5-14.5) 03/22/20 05:28 Plt Count 175 K/uL (130-400) 03/22/20 05:28 MPV 10.8 fL (7.4-10.4) H 03/22/20 05:28 Immature Gran % (Auto) 0.2 % 02/21/20 12:36 Neut % (Auto) 63.3 % 02/21/20 12:36 Lymph % (Auto) 25.1 % 02/21/20 12:36 [place] % (Auto) 8.2 % 02/21/20 12:36 Eos % (Auto) 3.0 % 02/21/20 12:36 Baso % (Auto) 0.2 % 02/21/20 12:36 Neut # (Auto) 2.93 K/uL (1.4-6.5) 02/21/20 12:36 Lymph # (Auto) 1.16 K/uL (1.2-3.4) L 02/21/20 12:36 [place] # (Auto) 0.38 K/uL (0.11-0.59) 02/21/20 12:36 Eos # (Auto) 0.14 K/uL (0-0.5) 02/21/20 12:36 Baso # (Auto) 0.01 K/uL (0-0.2) 02/21/20 12:36 Immature Gran # (Auto) 0.01 K/uL (0.00-0.02) 02/21/20 12:36 PT 10.3 Seconds (9.0-12.0) 02/21/20 12:36 INR 1.0 (0.9-1.1) 02/21/20 12:36 APTT 28.2 Seconds (21.0-31.0) 02/21/20 12:36 PTT Ratio 1.0 02/21/20 12:36 Sodium 141 mmol/L (136-145) 03/22/20 05:28 Potassium 5.0 mmol/L (3.5-5.1) 03/22/20 05:28 Chloride 112 mmol/L (98-107) H 03/22/20 05:28 Carbon Dioxide 24 mmol/L (21-32) 03/22/20 05:28 Anion Gap 5.0 (3-11) 03/22/20 05:28 BUN 28 mg/dl (7-18) H 03/22/20 05:28 Creatinine 1.74 mg/dl (0.6-1.4) H 03/22/20 05:28 Est Cr Clr Drug Dosing 41.8 ml/min 03/22/20 05:28 Est GFR ( Amer) 43.2 03/22/20 05:28 Est GFR (Non-Af Amer) 37.3 03/22/20 05:28 BUN/Creatinine Ratio 16.2 (10-20) 03/22/20 05:28 Glucose 124 mg/dl (70-99) H 03/22/20 05:28 Estimat Average Glucose 120 mg/dl 02/21/20 12:36 Hemoglobin A1c 5.8 % (4.5-5.6) H 02/21/20 12:36 Calcium 8.4 mg/dl (8.5-10.1) L 03/22/20 05:28 Albumin 3.4 gm/dl (3.4-5.0) 02/21/20 12:36 Urine Color Yellow 02/21/20 12:36 Urine Appearance Clear (Clear) 02/21/20 12:36 Urine pH 5.5 (4.5-7.5) 02/21/20 12:36 Ur Specific [place] 1.018 (1.000-1.030) 02/21/20 12:36 Urine Protein Negative (Negative) 02/21/20 12:36 Urine Glucose (UA) Negative (Negative) 02/21/20 12:36 Urine Ketones Negative (Negative) 02/21/20 12:36 Urine Blood Negative (Negative) 02/21/20 12:36 Urine Nitrite Negative (Negative) 02/21/20 12:36 Urine Bilirubin Negative (Negative) 02/21/20 12:36 Urine Urobilinogen Negative (Negative) 02/21/20 12:36 Ur Leukocyte Esterase Negative (Negative) 02/21/20 12:36 Blood Type A Positive 02/21/20 12:36 Antibody Screen NEGATIVE 02/21/20 12:36 Diagnostic Findings TWO VIEWS LEFT KNEE CLINICAL HISTORY: Postoperative examination. FINDINGS: AP and crosstable lateral portable views of the left knee are obtained. A left knee arthroplasty is in near anatomic alignment. There has been undersurface remodeling of the patella. No acute fracture is seen. There are expected postoperative changes around the knee including skin clips, a surgical drain, soft tissue edema, and subcutaneous gas. IMPRESSION: Expected postoperative changes status post left knee arthroplasty. No acute fracture is seen.
[2020-03-22] MEDS: ASPIRIN 81 MG ECTAB PO SCH (08:46)
[2020-03-22] MEDS: FERROUS GLUCONATE 324 MG TAB PO SCH (08:46)
[2020-03-22] MEDS: DOCUSATE SODIUM 100 MG CAP PO SCH (08:47)
[2020-03-22] MEDS ORDERED: allopurinoL 100 MG TAB PO SCH (09:00)
[2020-03-22] MEDS ORDERED: MULTIVITAMIN TAB PO SCH (09:00)
--- NOTE | 2020-03-24 12:00 | Discharge Summary ---
Date of Service March 24, 2020 Admission HPI Per Admitting Provider Mr Meneses is a 74 year old male who complains of left knee pain, presents for pre op eval prior to a left total knee replacement. He presents with pain and stiffness on the left side. He states that the symptoms have been chronic non- traumatic for at least 15 years. Currently the patient states that the symptoms are moderate-severe and is described as aching, sharp, shooting and throbbing. The symptoms are aggravated by ascending stairs, descending stairs, daily activities, exercise, first steps while awake, jumping, kneeling, movement, physical therapy, repetitive activities, sleeping on the affected side, squatting, standing, walking and weight bearing. In addition to left knee pain the patient is also experiencing decreased mobility, crepitus, difficulty bending, difficulty going to sleep, instability, joint pain, limping, nighttime awakening, pain, stiffness, tenderness and weakness. Prior pain medications include Tylenol. He has been treated with a corticosteroid injection, previous visco supplementation, Hyalgan, as well as previous PRP injections x2 to his left knee. Patient has had previous therapy. Admission Exam Per Admitting Provider Physical Exam: Ht: 5ft 11in Wt: 92.4kb BP: 134/72 Constitutional: WD/WN, vitals as above no acute distress Respiratory: normal respiratory effort, lungs clear to auscultation no respiratory distress, no labored breathing and does not use accessory muscles Cardiovascular: RRR, no murmur, no edema Gastrointestinal (Abdomen): normal bowel sounds, soft, nontender, no hepatosplenomegaly Musculoskeletal: Knee: + knee abnormal to inspection (Left knee- ), + effusion (+1 effusion), + limited ROM of knee (ROM 0/3/110), + knee ROM with crepitation, + joint line tenderness (medial joint line) and + Mayte's sign positive; no deformity, no skin erythema, no ecchymosis, no valgus laxity, no varus laxity, anterior drawer test negative, Yamilex's sign negative and pivot shift test negative Principal Diagnosis Left Knee Djd Discharge Data Allergies Allergy/AdvReac Type Severity Reaction Status Date / Time Iodinated Contrast Media Allergy Unknown Verified 03/21/20 10:34 Sulfa (Sulfonamide Allergy Redness of Verified 03/21/20 10:34 Antibiotics) Skin Consultations 03/21/20 14:33 Consult Case Management - Discharge Planning Routine Procedures Performed Operation Date: 03/21/20 13:40 Actual Procedures p Left Total Knee Arthroplasty(Left) - Carlos Bell DO Ordered Studies 03/21/20 05:00 US - OR guided needle placemen Routine 03/22/20 05:00 US guide needle placement Routine Hospital Course (1) Arthritis of knee, left: Date of Service March 22, 2020 Assessment & Plan (1) History of total left knee replacement: POD #1 s/p Left TKA pt/ot dvt proph with ACE/SCD/ASA recheck after PT today for poss discharge Admission and Anticipated Discharge Date Admission Date: March 21, 2020 Subjective POD #1 s/p Left TKA Review of Systems Constitutional: no fever, no chills and no sweats Respiratory: no cough and no dyspnea Cardiovascular: no chest pain and no dyspnea Gastrointestinal: no abdominal pain, no nausea and no vomiting Physical Exam Physical Exam: Vital Signs Temp 36.8 C 03/22/20 03:53 Pulse 98 H 03/22/20 03:53 Resp 16 03/22/20 03:53 BP 139/84 03/22/20 03:53 Pulse Ox 94 03/22/20 03:53 Intake & Output 03/21/20 03/22/20 03/22/20 18:59 06:59 18:59 Intake Total 1800 / 2800 1000 / 2800 Output Total 5 / 1000 995 / 1000 Balance 1795 / 1800 5 / 1800 Weight 91.6 kg Intake: IV 1100 / 2100 1000 / 2100 Lr 1,000 ml @ 15 mls/hr IV . 1000 / 1000 Q24H [facility] Rx#:[id number] Nss 1000ML 1,0 00 ml @ 100 mls/ 1000 / 1000 hr IV .Q10H [facility] Rx#:[id number] TRANEXAMIC ACI D / 0.7% NACL 1, 100 / 100 000 mg In 100 ml @ 600 mls/hr IV TODAY@0600 [facility] Rx#:[id number] IV Perioperative 700 / 700 Output: Urine 650 / 650 Estimated Blood Loss 5 / 5 Drain Output 345 / 345 Left Knee Hemo vac 345 / 345 Constitutional: WD/WN, vitals as above no acute distress Musculoskeletal: Left Leg: NVDI, calf SNT, negative sally sign. DP palpable, able to wiggle toes/ankle movement without difficulty. dressing clean dry and intact. Results & Data ([facility]) Vital Signs (Past 12 Hours) Vital Signs Temp Pulse Resp BP Pulse Ox 03/22/20 03:53 36.8 C 98 H 16 139/84 94 03/21/20 23:48 36.6 C 94 H 18 140/85 95 03/21/20 21:00 82 15 148/87 H 98 Laboratory Results Laboratory Results WBC 12.35 K/uL (4.8-10.8) H 03/22/20 05:28 RBC 3.85 M/uL (4.7-6.1) L 03/22/20 05:28 Hgb 11.6 g/dL (14.0-18.0) L 03/22/20 05:28 Hct 34.6 % (42-52) L 03/22/20 05:28 MCV 89.9 fL (80-100) 03/22/20 05:28 MCH 30.1 pg (25-34) 03/22/20 05:28 MCHC 33.5 g/dL (32-36) 03/22/20 05:28 RDW Std Deviation 47.6 fL (36.4-46.3) H 03/22/20 05:28 RDW Coeff of Zeina 14.5 % (11.5-14.5) 03/22/20 05:28 Plt Count 175 K/uL (130-400) 03/22/20 05:28 MPV 10.8 fL (7.4-10.4) H 03/22/20 05:28 Immature Gran % (Auto) 0.2 % 02/21/20 12:36 Neut % (Auto) 63.3 % 02/21/20 12:36 Lymph % (Auto) 25.1 % 02/21/20 12:36 Day % (Auto) 8.2 % 02/21/20 12:36 Eos % (Auto) 3.0 % 02/21/20 12:36 Baso % (Auto) 0.2 % 02/21/20 12:36 Neut # (Auto) 2.93 K/uL (1.4-6.5) 02/21/20 12:36 Lymph # (Auto) 1.16 K/uL (1.2-3.4) L 02/21/20 12:36 Day # (Auto) 0.38 K/uL (0.11-0.59) 02/21/20 12:36 Eos # (Auto) 0.14 K/uL (0-0.5) 02/21/20 12:36 Baso # (Auto) 0.01 K/uL (0-0.2) 02/21/20 12:36 Immature Gran # (Auto) 0.01 K/uL (0.00-0.02) 02/21/20 12:36 PT 10.3 Seconds (9.0-12.0) 02/21/20 12:36 INR 1.0 (0.9-1.1) 02/21/20 12:36 APTT 28.2 Seconds (21.0-31.0) 02/21/20 12:36 PTT Ratio 1.0 02/21/20 12:36 Sodium 141 mmol/L (136-145) 03/22/20 05:28 Potassium 5.0 mmol/L (3.5-5.1) 03/22/20 05:28 Chloride 112 mmol/L (98-107) H 03/22/20 05:28 Carbon Dioxide 24 mmol/L (21-32) 03/22/20 05:28 Anion Gap 5.0 (3-11) 03/22/20 05:28 BUN 28 mg/dl (7-18) H 03/22/20 05:28 Creatinine 1.74 mg/dl (0.6-1.4) H 03/22/20 05:28 Est Cr Clr Drug Dosing 41.8 ml/min 03/22/20 05:28 Est GFR ( Amer) 43.2 03/22/20 05:28 Est GFR (Non-Af Amer) 37.3 03/22/20 05:28 BUN/Creatinine Ratio 16.2 (10-20) 03/22/20 05:28 Glucose 124 mg/dl (70-99) H 03/22/20 05:28 Estimat Average Glucose 120 mg/dl 02/21/20 12:36 Hemoglobin A1c 5.8 % (4.5-5.6) H 02/21/20 12:36 Calcium 8.4 mg/dl (8.5-10.1) L 03/22/20 05:28 Albumin 3.4 gm/dl (3.4-5.0) 02/21/20 12:36 Urine Color Yellow 02/21/20 12:36 Urine Appearance Clear (Clear) 02/21/20 12:36 Urine pH 5.5 (4.5-7.5) 02/21/20 12:36 Ur Specific [place] 1.018 (1.000-1.030) 02/21/20 12:36 Urine Protein Negative (Negative) 02/21/20 12:36 Urine Glucose (UA) Negative (Negative) 02/21/20 12:36 Urine Ketones Negative (Negative) 02/21/20 12:36 Urine Blood Negative (Negative) 02/21/20 12:36 Urine Nitrite Negative (Negative) 02/21/20 12:36 Urine Bilirubin Negative (Negative) 02/21/20 12:36 Urine Urobilinogen Negative (Negative) 02/21/20 12:36 Ur Leukocyte Esterase Negative (Negative) 02/21/20 12:36 Blood Type A Positive 02/21/20 12:36 Antibody Screen NEGATIVE 02/21/20 12:36 Total Time Total Time Spent Total Time Spent (In Minutes): 5 Discharge Plan Discharge Items Patient Disposition: Home - Self-Care Reason For Visit: Unilateral Primary Osteoarthritis, Left Knee Discharge Diagnosis: Left Knee Osteoarthritis Activity: Per Instructions section Weightbearing: Left weightbearing Weightbearing Comment: as tolerated with walker Non-emergency contact: Surgeon Call non-emergency contact if: your pain is not controlled, your temperature is above 101.5, your wound has increased redness and your wound has increased drainage Follow-up/Referrals: Joey Moulton, [Primary Care Provider] - Diet: Regular Addtl Attending Provider Instructions: ACTIVITY RECOMMENDATIONS: SELF CARE INSTRUCTIONS AFTER TOTAL KNEE REPLACEMENT A. You may need to continue a physical therapy program after discharge from the hospital. There are several options available to you. Your doctor will assist you in selecting the best one for you. 1. An out-patient facility 2 to 3 times a week for therapy or home therapy. 2. Continue working on all exercises taught to you in the hospital. Your goals should be to increase bending of your knee to 90 degrees and beyond and to fully straighten your knee. B. You may progress at your own pace from walking with a walker or crutches to a cane; then to no assistive devices. C. Make walking a part of your daily routine. Be up as much as comfortable with rest periods throughout the day. Rest with leg elevation is very important. Use the ice wrap frequently for the first 3-4 weeks. D. There are no restrictions on activities. You may ride in a car, shop, participate in candy starch mold printer and all social activities. E. Wear the long elastic stockings (ACE hose) 20 hours a day for 2 weeks after surgery. They can be removed several times a day for laundering and for a bath. F. You may shower, no tub baths until cleared by your doctor. SPECIAL CARE INSTRUCTIONS: VERY IMPORTANT TO READ AND REVIEW A. There are a few signs you need to watch for after you are home. Call [facility] [place] if you notice any of the followin. Increased severe knee pain. Some pain is expected especially when you exercise. 2. Increased swelling in your leg or knee; pain or swelling of the calf muscle in either lower leg. 3. Any fluid drainage from the incision. 4. Shortness of breath or chest pain. B. Please call [facility] [place] at if you have any concerns or questions about your operation or recovery. The doctor or his nurse will return your call promptly. C. You must take antibiotics before dental work, bladder, bowel or other surgery. Your doctor will provide you with a permanent care to carry describing this precaution. IMPORTANT: * REMEMBER TO TAKE ASPIRIN, 81 MG, TWICE DAILY FOR 4 WEEKS UNLESS OTHERWISE DIRECTED. THIS IS YOUR BLOOD THINNER. * HIGH RISK PATIENTS MAY BE PRESCRIBED A STRONGER BLOOD THINNER. THIS WILL BE PROVIDED AT DISCHARGE. * CALL IF INCREASED PAIN, REDNESS, DRAINAGE OR FEVER GREATER THAT 101. * WEAR ACE HOSE 20 HOURS PER DAY FOR 2 WEEKS. * CACHORRO Dressing - This is a large suction dressing covering your incision. This will help pull any excess drainage from the wound and allow your incision to heal properly. You may shower with this if you can keep the unit outside of the shower. If any bleeding or leakage is noted please call your doctor's office. This will remain on your incision for 7 days and then should be removed. This can be done yourself or by the home nursing staff if applicable. The entire unit is disposable once removed. Once removed, keep incision clean and dry. If redness or drainage is noted, please call your surgeon. . FOLLOW UP VISIT: If appointment is not already scheduled: Please call [facility] [place] to make a follow-up appointment for 2 weeks after your surgery at . Stand-Alone Forms: My [facility], Opioid Pain Management, Smoking Cessation Medications and DC Order Prescriptions: New aspirin 81 mg Tablet,Delayed Release (Dr/Ec) 81 mg PO BID 30 Days Qty: 60 RF: 0 acetaminophen 500 mg Tablet 1,000 mg PO Q8 14 Days Qty: 84 RF: 0 oxycodone 5 mg Tablet 5 mg PO Q4H MDD 6 PRN (Reason: pain) Qty: 30 RF: 0 Continued sennosides [Senna Lax] 8.6 mg Tablet 8.6 mg PO HS RF: 0 allopurinol 100 mg Tablet 100 mg PO QAM RF: 0 diphenhydramine HCl [Benadryl] 25 mg Capsule 50 mg PO HS RF: 0 docusate sodium [Colace] 100 mg Capsule 100 mg PO PM RF: 0 vitamin E 400 unit Capsule 400 unit PO 3XWK RF: 0 oxymetazoline [Afrin Sinus (oxymetazoline)] 0.05 % Herod,Non-Aerosol 2 spray INTRANASAL Q12H PRN (Reason: Congestion) RF: 0 omeprazole magnesium [Prilosec OTC] 20 mg Tablet,Delayed Release (Dr/Ec) 20 mg PO Q OTHER DAY RF: 0 tadalafil [Cialis] 5 mg Tablet 5 mg PO DAILY PRN (Reason: Erectile Dysfunction) RF: 0 Centrum Silver Men 300-600-300 mcg Tablet 1 tab PO QAM RF: 0 PreserVision AREDS-2 [id number] Capsule 1 tab PO QAM RF: 0 Discontinued acetaminophen [Tylenol Extra Strength] 500 mg Tablet 500 mg PO BID RF: 0 Discharge Orders: Discharge Order (Routine); Ordered 03/22/20 Ordered By: Rubén Cruz/Other Patient Handouts: DVT Post Op Prevention, Understanding Knee Replacement, Knee Replacement Total Dc Admission Data Admit Date/Time: 03/21/20 13:41 Attending Provider: Carlos Bell Admit Provider: Carlos Bell Primary Care Provider: Joey Moulton. Other Interventions: Discharge Summary Assessment (RN) Last Done: 03/22/20 13:32
== END 2020-03-22 15:15 | disposition home or self-care (01) ==
LOC: ASU 09:23 → 3E 09:23